=== PATIENT | female | born 1950 | race Caucasian/White ===

== ENCOUNTER 2022-03-31 10:43 | Emergency (ER) | payer OTHER ==
[~2022-03-31] VITALS: Ht 157.5 cm; Wt 62.6 kg
[2022-03-31] MEDS ORDERED: HYDROCODONE/APAP 5MG-325MG TAB PO PRN (11:15)
[2022-03-31 12:10] LABS: CLARITY,URINE SL CLOUDY (CLEAR); COLOR,URINE YELLOW (YELLOW); LEUKOCYTE ESTERASE ,URINE TRACE (NEGATIVE); NITRITE,URINE NEGATIVE (NEGATIVE)
[2022-03-31 12:11] LABS: KETONES,URINE 1+ (NEGATIVE); PROTEIN,URINE DIPSTICK NEGATIVE (NEGATIVE); URINE UROBILINOGEN 0.2 mg/dL (0.2 - 1)
[2022-03-31 12:23] LABS: BACTERIA,URINE FEW /HPF; EPITHELIAL CELLS,URINE MODERATE /LPF
[2022-03-31 12:24] LABS: CALCIUM OXALATE CRYSTALS,UR MANY (FEW)
[2022-03-31 12:25] LABS: MUCUS,URINE RARE (RARE); RENAL EPITHELIAL CELLS,URINE RARE
[2022-03-31 12:26] LABS: RBC,URINE 21-50 /HPF (0-5)
[2022-03-31] MEDS ORDERED: PREDNISONE50 MG PO (14:43)
[2022-03-31] MEDS ORDERED: METHOCARBAMOL500 MG PO (14:43)
== END 2022-03-31 14:45 | disposition home or self-care (01) ==
LOC: ER 11:07
DX: M51.36 Other intervertebral disc degeneration, lumbar region (principal); R31.9 Hematuria, unspecified; M81.8 Other osteoporosis without current pathological fracture
CPT/HCPCS: 72110; 74176; 81001; 87086; 99283